=== PATIENT | male | born 1950 | race Caucasian/White ===

== ENCOUNTER → 2019-05-06 09:50 | Outpatient (POV) | payer OTHER, SELFPAY ==
[2019-05-06 10:01] VITALS: BP 159/74; PULSE 70; RESP 18; O2SAT 97; BMI 29.5
--- NOTE | 2019-05-06 15:25 | P.CONS_ITS ---
Assessment and Plan (1) Degenerative disc disease Current visit: Yes Status: Chronic Qualifiers: Spinal region: lumbar Qualified Code(s): M51.36 - Other intervertebral disc degeneration, lumbar region Category: Medical (2) Lumbar radiculopathy Current visit: Yes Status: Chronic Category: Medical Code(s): M54.16 - Radiculopathy, lumbar region - Assessment and plan all Dx Assessment and Plan for all problems:: I will follow-up with the patient at his next intrathecal pain pump refill and reprogram. Patient's been instructed to call the office if he has any issues prior to this. Dr. Seaman has reviewed this note and agrees with this plan of care. This note was dictated using voice recognition software and may contain errors or omissions HPI - Data of Consult Consult date: 05/06/19 Requesting Physician: Nikia Davidson APRN Primary Care Provider: Joe Garcia - Consult Narrative Reason for consult: Take over intrathecal pain pump History of present illness: Mr. Walker is a 68 year old male who presents today for consultation in regards to us managing his intrathecal pain pump here. He was a patient in [place] in this location is much closer. He rates his pain today at 5 out of 10 which is manageable for him. Patient did have some issues when he had his intrathecal pain pump switched over however these have resolved. He denies side effects to his medication at this time. CC: Nikia Davidson APRN [facility] History I have reviewed the patient's past medical history: Yes *Have you ever received a pneumonia vaccine?: Yes *Have you received a flu vaccine this season?: Yes - *Social History *Occupational Status:: employed *Travel in the last 8 weeks: None Family Hx:: Non-contributory Review of Systems - Review of Systems ROS General: no recent weight change, no fever, no sleep disturbances Respiratory: no cough, no shortness of air, no recurring pulmonary infections Cardiovascular/Peripheral Vascular: No chest pain, No palpitations, no edema, no shortness of breath. Gastrointestinal: no new onset incontinence, normal bowel movements reported Genitourinary: no new onset incontinence Musculoskeletal: Back pain Psychiatric: normal mood/ affect Neurological: [denies new onset weakness in extremities], [denies new onset balance issues] Meds Allergies Allergy/AdvReac Type Severity Reaction Status Date / Time No Known Allergies Allergy Verified 05/06/19 10:27 Objective Vital signs: Pulse Resp BP Pulse Ox 70 18 159/74 H 97 05/06/19 10:01 05/06/19 10:01 05/06/19 10:01 05/06/19 10:01 Narrative: Physical Exam General: Alert and oriented x3, no acute distress, pleasant and cooperative, [on room air] Lungs: Resps E/U, Symmetrical chest expansion, Eyes: PERRL Musculoskeletal: Flexion and extension of lumbar spine somewhat guarded secondary to pain, deep tendon reflexes normal, strength in upper and lower extremities [5/5], [abnormal gait noted] Neurological: speech clear, fixed income portfolio manager equal, no gross sensory deficits
== END ==
PROVIDERS: PCP Orthopaedic Surgery; Visit Provider Clinical Nurse Specialist Family Health
DX: M51.16 Intervertebral disc disorders with radiculopathy, lumbar region (principal)
CPT/HCPCS: 99202

== ENCOUNTER 2019-12-09 12:03 | Day surgery (SDC) | payer OTHER, SELFPAY ==
[2019-12-09 13:06] VITALS: BP 156/67; PULSE 63; RESP 18; O2SAT 97; BMI 28.8
[2019-12-09 13:19] VITALS: BP 185/85; PULSE 66; RESP 18
--- NOTE | 2019-12-09 13:21 | HMH.PMPROC ---
- Procedure Date: 12/09/19 Time: 13:21 Anesthesiologist:: Nikia Davidson APRN Complications:: None Pre-procedure Diagnosis:: Degenerative disc disease lumbar spine with lumbar radiculopathy Post-procedure Diagnosis:: Same Indications for Procedure:: Patient is a pleasant 69-year-old white male who presents today for intrathecal pain pump refill and reprogram he rates pain 3 out of 10 today. Overall doing well. [facility] #[id number] reviewed and appropriate. Urine drug screens have been appropriate. Patient denies side effects of medication he is currently going on morphine 1.6 mg/day. He does not need adjustments. Physical Exam General: Alert and oriented x3, no acute distress, pleasant and cooperative, Lungs: Resps E/U, Symmetrical chest expansion, Eyes: PERRL Musculoskeletal: Flexion and extension of lumbar spine somewhat guarded secondary to pain, deep tendon reflexes normal, strength in upper and lower extremities [5/5], slightly antalgic gait noted Neurological: speech clear, paper latcher equal, no gross sensory deficits Procedure Details:: Informed consent was obtained and the risk and benefits of the procedure were explained to the patient. The patient was taken to the procedure room where noninvasive monitoring was placed including noninvasive blood pressure cuff and pulse oximeter. Patient's pump was interrogated. The area over the pump was cleansed with chlorhexidine as a cleansing solution. In sterile fashion the pump was accessed with a 22-gauge needle. Approximately 9.5 mL's were removed of the pump solution and discarded appropriately. The pump was then refilled with 20 mL's of morphine 20 mg/mL. The needle was withdrawn and a bandage was placed over the puncture site. The infusion rate was reprogrammed to continue at 1.6 mg/day. The patient tolerated the procedure well. Plan and Disposition:: See the patient back at his next intrathecal pain pump refill and reprogram he has been instructed to call the office if he has any issues prior to his next appointment. Dr. Seaman has reviewed this note and agrees with this plan of care. This note was dictated using voice recognition software and may contain errors or omissions
[2019-12-09 13:22] VITALS: BP 185/85; PULSE 66; RESP 18; TEMP 36.6; O2SAT 98
[2019-12-09 13:29] VITALS: BP 154/70; PULSE 61; RESP 18; O2SAT 97
== END 2019-12-09 13:31 | disposition home or self-care (01) ==
LOC: SC.PAINP 12:05
PROVIDERS: Visit Provider Clinical Nurse Specialist Family Health
DX: M51.16 Intervertebral disc disorders with radiculopathy, lumbar region (principal); I25.10 Atherosclerotic heart disease of native coronary artery without angina pectoris; E78.5 Hyperlipidemia, unspecified; I10 Essential (primary) hypertension; J44.9 Chronic obstructive pulmonary disease, unspecified; Z87.39 Personal history of other diseases of the musculoskeletal system and connective tissue
CPT/HCPCS: 62370

== ENCOUNTER 2020-04-05 14:30 | Day surgery (SDC) | payer OTHER, SELFPAY ==
[2020-04-05 14:37] VITALS: BP 162/74; PULSE 62; RESP 19; TEMP 37; O2SAT 100; BMI 29.3
--- NOTE | 2020-04-05 14:54 | P.PCN_ITS ---
- Procedure Date: 04/05/20 Time: 15:00 Anesthesiologist:: Nikia Davidson APRN Complications:: None Pre-procedure Diagnosis:: Degenerative disc disease lumbar spine lumbar radiculopathy Post-procedure Diagnosis:: Same Indications for Procedure:: Patient is a very pleasant 69-year-old white male who presents today for intrathecal pain pump refill and reprogram. He rates his pain today a 2 out of 10. Overall doing well. [facility] #[id number] reviewed and appropriate. He is currently going at 1.6 mg of morphine a day. He denies side effects. Physical Exam General: Alert and oriented x3, no acute distress, pleasant and cooperative, [on room air] Lungs: Resps E/U, Symmetrical chest expansion, Eyes: PERRL Musculoskeletal: Flexion and extension of lumbar spine somewhat guarded secondary to pain, deep tendon reflexes normal, strength in upper and lower extremities [5/5], slightly antalgic gait noted Neurological: speech clear, sales program coordinator equal, no gross sensory deficits Procedure Details:: Informed consent was obtained and the risk and benefits of the procedure were explained to the patient. The patient was taken to the procedure room where no ninvasive monitoring was placed including noninvasive blood pressure cuff and pulse oximeter. Patient's pump was interrogated. The area over the pump was cleansed with chlorhexidine as a cleansing solution. In sterile fashion the pump was accessed with a 22-gauge needle. Approximately 10 mL's were removed of the pump solution and discarded appropriately. The pump was then refilled with 20 mL's of morphine 20 mg/mL. The needle was withdrawn and a bandage was placed over the puncture site. The infusion rate was reprogrammed to continue at 1.6 mg/day. The patient tolerated the procedure well. My pain pump refill Plan and Disposition:: I will see the patient back at his next intrathecal pain pump refill and reprogram he has been instructed to call the office if he has any issues prior to his next appointment. Dr. Seaman has reviewed this note and agrees with this plan of care. This note was dictated using voice recognition software and may contain errors or omissions
[2020-04-05 14:58] VITALS: BP 165/80; PULSE 63
[2020-04-05 14:59] VITALS: BP 165/78; PULSE 65; RESP 18; O2SAT 98
[2020-04-05 15:10] VITALS: BP 169/74; PULSE 62; RESP 18; O2SAT 96
== END 2020-04-05 15:12 | disposition home or self-care (01) ==
LOC: SC.PAINP 14:33
PROVIDERS: Visit Provider Clinical Nurse Specialist Family Health
DX: M51.16 Intervertebral disc disorders with radiculopathy, lumbar region (principal); I10 Essential (primary) hypertension; E78.5 Hyperlipidemia, unspecified; J44.9 Chronic obstructive pulmonary disease, unspecified; Z90.49 Acquired absence of other specified parts of digestive tract; Z87.39 Personal history of other diseases of the musculoskeletal system and connective tissue
CPT/HCPCS: 95991

== ENCOUNTER 2020-08-02 12:27 | Day surgery (SDC) | payer OTHER, SELFPAY ==
[2020-08-02 12:53] VITALS: BP 137/79; PULSE 60; RESP 18; TEMP 37.3; BMI 29.0
[2020-08-02 13:31] VITALS: BP 178/88; PULSE 65; RESP 18; TEMP 36.8; O2SAT 98
[2020-08-02 13:32] VITALS: BP 175/87; PULSE 65; RESP 18; O2SAT 97
--- NOTE | 2020-08-02 13:34 | HMH.PMPROC ---
- Procedure Date: 08/02/20 Time: 13:34 Anesthesiologist:: Nikia Davidson APRN Complications:: None Pre-procedure Diagnosis:: Degenerative disc disease lumbar spine lumbar radiculopathy Post-procedure Diagnosis:: Same Indications for Procedure:: Patient is a pleasant 69-year-old white male who presents today for intrathecal pain pump refill and reprogram. He rates his pain a 2 out of 10 and is doing well. He does not need any changes to his intrathecal infusion of morphine 1.6 mg/day. He denies side effects. [facility] #[id number] reviewed and appropriate. Drug screens have been appropriate. Physical Exam General: Alert and oriented x3, no acute distress, pleasant and cooperative, [on room air] Lungs: Resps E/U, Symmetrical chest expansion, Eyes: PERRL Musculoskeletal: Flexion and extension of lumbar spine somewhat guarded secondary to pain, deep tendon reflexes normal, strength in upper and lower extremities [5/5], antalgic gait noted Neurological: speech clear, barrel lathe operator outside equal, no gross sensory deficits Procedure Details:: Informed consent was obtained and the risk and benefits of the procedure were explained to the patient. The patient was taken to the procedure room where noninvasive monitoring was placed including noninvasive blood pressure cuff and pulse oximeter. Patient's pump was interrogated. The area over the pump was cleansed with chlorhexidine as a cleansing solution. In sterile fashion the pump was accessed with a 22-gauge needle. Approximately 10 mL's were removed of the pump solution and discarded appropriately. The pump was then refilled with 20 mL's of 20 mils of morphine 20 mg/ml. The needle was withdrawn and a bandage was placed over the puncture site. The infusion rate was reprogrammed to continue at 1.6 mg/day. The patient tolerated the procedure well. Plan and Disposition:: I will see the patient back at his next intrathecal pain pump refill and reprogram he has been instructed to call the office if he has any issues prior to his next appointment. Dr. Seaman has reviewed this note and agrees with this plan of care. This note was dictated using voice recognition software and may contain errors or omissions
[2020-08-02 13:38] VITALS: BP 127/73; PULSE 60; RESP 18; TEMP 37.3; O2SAT 97
== END 2020-08-02 13:40 | disposition home or self-care (01) ==
LOC: SC.PAINP 12:28
PROVIDERS: Visit Provider Clinical Nurse Specialist Family Health
DX: M51.16 Intervertebral disc disorders with radiculopathy, lumbar region (principal); I10 Essential (primary) hypertension; K21.9 Gastro-esophageal reflux disease without esophagitis; N40.0 Benign prostatic hyperplasia without lower urinary tract symptoms; Z87.39 Personal history of other diseases of the musculoskeletal system and connective tissue; Z90.01 Acquired absence of eye; E11.9 Type 2 diabetes mellitus without complications; Z79.890 Hormone replacement therapy; Z79.84 Long term (current) use of oral hypoglycemic drugs; Z79.899 Other long term (current) drug therapy
CPT/HCPCS: 95991

== ENCOUNTER 2020-11-08 12:57 | Day surgery (SDC) | payer OTHER, SELFPAY ==
[2020-11-08 13:14] VITALS: BP 167/74; PULSE 59; RESP 18; TEMP 36.6; O2SAT 98; BMI 28.8
[2020-11-08 13:33] VITALS: BP 174/85; PULSE 67; RESP 18; TEMP 36.8; O2SAT 98
[2020-11-08 13:34] VITALS: BP 168/88; PULSE 65; RESP 18; O2SAT 98
--- NOTE | 2020-11-08 13:35 | P.PCN_ITS ---
- Procedure Date: 11/08/20 Time: 13:35 Anesthesiologist:: Nikia Davidson APRN Complications:: None Pre-procedure Diagnosis:: Generative disc disease lumbar spine lumbar radiculopathy, acute neck pain, back pain Post-procedure Diagnosis:: Same Indications for Procedure:: Patient is a pleasant 70-year-old white male who presents today for intrathecal pain pump refill and reprogram. Patient back pain is doing well however he has had a acute neck pain. Patient rates this a 7 out of 10. He has issues with ocular migraines as well. Patient I discussed a round of steroids and an MRI of his cervical spine he is in agreement. Patient currently on 1.6 mg a day of morphine. He denies side effects. [facility] #[id number] reviewed and appropriate. Procedure Details:: Informed consent was obtained and the risk and benefits of the procedure were explained to the patient. The patient was taken to the procedure room where noninvasive monitoring was placed including noninvasive blood pressure cuff and pulse oximeter. Patient's pump was interrogated. The area over the pump was cleansed with chlorhexidine as a cleansing solution. In sterile fashion the p ump was accessed with a 22-gauge needle. Approximately 11.5 mL's were removed of the pump solution and discarded appropriately. The pump was then refilled with 20 mL's of morphine 20 mg/mL. The needle was withdrawn and a bandage was placed over the puncture site. The infusion rate was reprogrammed to continued at 1.6 mg/day. The patient tolerated the procedure well. Plan and Disposition:: We will send in the patient prednisone 20 mg 1 p.o. twice daily for 5 days we will also give him an order for an MRI to be done in his hometown. We will follow up after this is completed. He has been instructed to call our office if the pain gets worse or if he has any issues prior to his next appointment. Dr. Seaman has reviewed this note and agrees with this plan of care. This note was dictated using voice recognition software and may contain errors or omissions
[2020-11-08 14:28] VITALS: BP 138/69; PULSE 61; RESP 18; TEMP 36.6; O2SAT 98
== END 2020-11-08 13:40 | disposition home or self-care (01) ==
LOC: SC.PAINP 13:01
PROVIDERS: Visit Provider Clinical Nurse Specialist Family Health
DX: M51.16 Intervertebral disc disorders with radiculopathy, lumbar region (principal); M54.2 Cervicalgia; I25.10 Atherosclerotic heart disease of native coronary artery without angina pectoris; E78.5 Hyperlipidemia, unspecified; I10 Essential (primary) hypertension; E11.9 Type 2 diabetes mellitus without complications; K21.9 Gastro-esophageal reflux disease without esophagitis; Z87.39 Personal history of other diseases of the musculoskeletal system and connective tissue
CPT/HCPCS: 95991

== ENCOUNTER → 2020-12-02 13:36 | Outpatient (POV) | payer OTHER, SELFPAY ==
--- NOTE | 2020-12-02 14:07 | P.PCN_ITS ---
- Procedure Date: 12/02/20 Time: 14:07 Anesthesiologist:: Nikia Davidson APRN Complications:: None Pre-procedure Diagnosis:: Degenerative disc disease lumbar spine lumbar radiculopathy, degenerative disc disease cervical spine cervical radiculopathy Post-procedure Diagnosis:: Same Indications for Procedure:: Is a pleasant 70-year-old white male who presents today for discussion I r arjunwed in regard to his new MRI. Patient does have some degeneration in his cervical spine. We will make an increase in his intrathecal therapy. Patient also having quite a bit of muscle pain. We discussed switching his muscle relaxer to Zanaflex versus Flexeril. We will move forward with this. Patient I also briefly discussed potential medication changes or the addition of bupivacaine. He rates his pain today a 5 out of 10 Procedure Details:: Informed consent was obtained and the risk and benefits of the procedure were explained to the patient. The patient was taken to the procedure room where noninvasive monitoring was placed including noninvasive blood pressure cuff and pulse oximeter. Patient's pump was interrogated and reprogrammed. The infusion rate was increased to 1.9 mg a day morphine. The patient tolerated the procedure well. Plan and Disposition:: We will start him on Zanaflex 2 mg 1-2 tabs 3 times a day day.. We will do a virtual visit in 2 weeks to see how he is doing with the adjustment if he is not getting much relief we will discuss potentially changing medications. Dr. Seaman has reviewed this note and agrees with this plan of care. This note was dictated using voice recognition software and may contain errors or omissions Dr. Seaman has reviewed this note and agrees with this plan of care. This note was dictated using voice recognition software and may contain errors or omissions he has been instructed to call the office if he has any issues prior to his next appointment.
[2020-12-02 14:51] VITALS: BP 131/71; PULSE 72; RESP 18; O2SAT 98; BMI 29.5
== END ==
PROVIDERS: Visit Provider Clinical Nurse Specialist Family Health
DX: M51.16 Intervertebral disc disorders with radiculopathy, lumbar region (principal); M50.10 Cervical disc disorder with radiculopathy, unspecified cervical region
CPT/HCPCS: 62368

== ENCOUNTER 2021-03-07 13:37 | Day surgery (SDC) | payer OTHER, SELFPAY ==
[2021-03-07 13:53] VITALS: BP 179/79; PULSE 64; RESP 18; TEMP 36.6; O2SAT 97; BMI 29.7
--- NOTE | 2021-03-07 14:05 | HMH.PMPROC ---
- Procedure Date: 03/07/21 Time: 14:05 Anesthesiologist:: Lore Snyder APRN Complications:: None Pre-procedure Diagnosis:: Degenerative disc disease lumbar spine with lumbar radiculopathy symptoms, degenerative disc disease cervical spine with cervical radiculopathy symptoms Post-procedure Diagnosis:: Same Indications for Procedure:: Patient is a 70-year-old white male who presents today for intrathecal pain pump refill and reprogram. He has been treated for degenerative disc disease cervical spine and lumbar spine with cervical and lumbar radiculopathy symptoms. Patient is currently on intrathecal therapy with morphine at at 1.9 mg/day. He is rating his pain a [address] [facility] #[id number] has been reviewed and is appropriate. Drug screen is appropriate. Morphine equivalent is 0. He is doing well with his dose at this time and does not need any changes. Physical exam General: Alert and oriented x3, no acute distress, pleasant and cooperative, [on room air] Lungs: Respirations even and unlabored, symmetrical chest expansion Eyes: PERRL Musculoskeletal: Flexion and extension of lumbar [spine] somewhat guarded secondary to pain, strength in upper and lower extremities [5/5], [antalgic gait noted] Neurological: Speech clear, [chronic care nurse equal], no gross sensory deficit Procedure Details:: Informed consent was obtained and the risk and benefits of the procedure were explained to the patient. The patient was taken to the procedure room where noninvasive monitoring was placed including noninvasive blood pressure cuff and pulse oximeter. Patient's pump was interrogated. The area over the pump was cleansed with chlorhexidine as a cleansing solution. In sterile fashion the pump was accessed with a 22-gauge needle. Approximately 7 mls of the pump solution was removed and discarded appropriately. The pump was then refilled with 20 mL's of morphine 20 mg/mL. The needle was withdrawn and a bandage was placed over the puncture site. The infusion rate was reprogrammed at morphine at 1.9 mg/day. The patient tolerated well with no complication. Plan and Disposition:: We will see the patient back in the clinic at the next intrathecal refill. Patient has been instructed to contact the clinic with any concerns before the next appointment. Dr. Seaman has reviewed this note and agrees with this plan of care. This note was dictated using voice recognition software and make contain errors or omissions.
[2021-03-07 14:07] VITALS: BP 156/85; PULSE 69; RESP 18; O2SAT 97
[2021-03-07 14:08] VITALS: BP 156/85; PULSE 68; RESP 18; O2SAT 96
[2021-03-07 14:20] VITALS: BP 160/76; PULSE 65; RESP 18; O2SAT 97
== END 2021-03-07 14:21 | disposition home or self-care (01) ==
LOC: SC.PAINP 13:38
PROVIDERS: PCP Family Medicine; Visit Provider Clinical Nurse Specialist Family Health
DX: M51.16 Intervertebral disc disorders with radiculopathy, lumbar region (principal); M50.10 Cervical disc disorder with radiculopathy, unspecified cervical region
CPT/HCPCS: 95991

== ENCOUNTER 2021-06-13 13:27 | Day surgery (SDC) | payer OTHER, SELFPAY ==
--- NOTE | 2021-06-13 13:37 | P.PCN_ITS ---
- Procedure Date: 06/13/21 Time: 13:37 Anesthesiologist:: Lore Snyder APRN Complications:: None Pre-procedure Diagnosis:: Degenerative disc disease lumbar spine with lumbar radiculopathy symptoms Post-procedure Diagnosis:: Same Indications for Procedure:: Patient is a pleasant 70-year-old white male who presents today for intrathecal pain pump [refill] [and reprogram]. The patient is being treated for chronic low back pain. He is doing well with his intrathecal pump. He is reporting to be having a fungal infection to his lungs. They are working him up to determine what type of antibiotic is sensitive to the infection that he currently has. This has been ongoing for a couple months. He thought that it was due to the intrathecal medication but has since realized it is not. Patient rates pain a 4 out of 10. Drug screen is appropriate. [facility] [ ] has been reviewed and is appropriate. Physical exam General: Alert and oriented x3, no acute distress, pleasant and cooperative, [on room air] Lungs: Respirations even and unlabored, symmetrical chest expansion Eyes: PERRL Musculoskeletal: Flexion and extension of lumbar [spine] somewhat guarded secondary to pain, [antalgic gait noted] Neurological: Speech clear, no gross sensory deficit Procedure Details:: Informed consent was obtained and the risk and benefits of the procedure were explained to the patient. The patient was taken to the procedure room where noninvasive monitoring was placed including noninvasive blood pressure cuff and pulse oximeter. Patient's pump was interrogated. The area over the pump was cleansed with chlorhexidine as a cleansing solution. In sterile fashion the pump was accessed with a 22-gauge needle. Approximately 7 mls of the pump solut ion was removed and discarded appropriately. The pump was then refilled with 20 mL's of morphine 20 mg per mill. The needle was withdrawn and a bandage was placed over the puncture site. The infusion rate was reprogrammed at morphine at 1.9 mg/day. The patient tolerated well with no complication. Plan and Disposition:: Patient has been instructed to contact the clinic with any concerns before the next appointment. Dr. Seaman has reviewed this note and agrees with this plan of care. This note was dictated using voice recognition software and make contain errors or omissions.
[2021-06-13 13:43] VITALS: BP 169/74; PULSE 58; RESP 18; TEMP 37.2; O2SAT 95; BMI 28.8
[2021-06-13 14:16] VITALS: BP 156/72; PULSE 61; RESP 18; O2SAT 95
[2021-06-13 14:17] VITALS: PULSE 66; RESP 18; O2SAT 96
[2021-06-13 14:30] VITALS: BP 165/68; PULSE 56; RESP 20; O2SAT 96
[2021-06-13 20:05] LABS: Amphetamine/Metha Screen,Urine Negative ng/ml (<1000)
[2021-06-13 20:06] LABS: Barbiturates Screen,Urine Negative ng/ml (<200); Benzodiazepines Screen,Urine Negative ng/ml (<200)
[2021-06-13 20:10] LABS: Cannabinoid Screen,Urine Negative ng/ml (<50)
[2021-06-13 20:11] LABS: Cocaine Screen,Urine Negative ng/ml (<300); Methadone Screen,Urine Negative ng/ml (<300)
[2021-06-13 20:12] LABS: Phencyclidine Screen,Urine Negative ng/ml (<25)
[2021-06-13 20:13] LABS: Opiate Screen,Urine Negative ng/ml (<300)
== END 2021-06-13 14:30 | disposition home or self-care (01) ==
LOC: SC.PAINP 13:27
PROVIDERS: PCP Family Medicine; Visit Provider Clinical Nurse Specialist Family Health
DX: M51.16 Intervertebral disc disorders with radiculopathy, lumbar region (principal); Z45.1 Encounter for adjustment and management of infusion pump; Z79.891 Long term (current) use of opiate analgesic
CPT/HCPCS: 80305; 95991

== ENCOUNTER 2021-09-12 12:24 | Day surgery (SDC) | payer OTHER, SELFPAY ==
[2021-09-12 13:01] VITALS: BP 152/69; BP 156/70; PULSE 49; PULSE 56; RESP 20; TEMP 36.8; O2SAT 97; BMI 28.8
[2021-09-12 13:10] VITALS: BP 160/75; PULSE 57; RESP 20; O2SAT 96
[2021-09-12 13:12] VITALS: BP 158/70; PULSE 58; RESP 20; O2SAT 97
--- NOTE | 2021-09-12 15:21 | P.PCN_ITS ---
- Procedure Date: 09/12/21 Time: 15:21 Anesthesiologist:: Eloisa Marrero MD Complications:: None Pre-procedure Diagnosis:: Degenerative disc disease of lumbar spine with lumbar radiculopathy Post-procedure Diagnosis:: Same Indications for Procedure:: Patient is a very pleasant 71-year-old male who presents today for intrathecal pump refill and reprogram. He is currently being treated for degenerative disc disease and lumbar spine lumbar radiculopathy. He has a pump with a flow Clifford system with intrathecal morphine 20 mg/mL at 1.9 mg/day and constant flow and PTC. He states that his chronic pain symptoms are adequately by his current pump settings. Today we will perform intrathecal pump refill and reprogram without any changes in the pump settings. Procedure Details:: Informed consent was obtained and the risks and benefits of the procedure was explained to the patient. The patient was taken to the procedure room. The pump was interrogated. The area over the pump was prepped using ChloraPrep. The pump was accessed with a 22-gauge needle. Approximately 11 mL's of the intrathecal solution was withdrawn and discarded. The pump was then refilled with 20 mL's of intrathecal warfarin 20 mg/mL. the pump was interrogated and the infusion was continued at 1.9 mg/day. The patient tolerated the procedure well with no complications. Next refill date is on [January 04, 2022]. Plan and Disposition:: We will follow-up with this patient on or before the next pump refill appointment make any pump adjustments at that time if indicated. I discussed with the patient the patient contact her clinic sooner should any issues arise. [facility] #[id number] was reviewed and appropriate.
== END 2021-09-12 13:35 | disposition home or self-care (01) ==
LOC: SC.PAINP 12:25
PROVIDERS: PCP Family Medicine; Visit Provider Anesthesiology Pain Medicine
DX: M51.16 Intervertebral disc disorders with radiculopathy, lumbar region (principal); Z45.1 Encounter for adjustment and management of infusion pump
CPT/HCPCS: 95991

== ENCOUNTER → 2021-09-12 13:30 | Outpatient (CLI) | payer OTHER, SELFPAY ==
[2021-09-12 17:27] LABS: Amphetamine/Metha Screen,Urine Negative ng/ml (<1000); Barbiturates Screen,Urine Negative ng/ml (<200)
[2021-09-12 17:29] LABS: Benzodiazepines Screen,Urine Negative ng/ml (<200)
[2021-09-12 17:30] LABS: Cannabinoid Screen,Urine Negative ng/ml (<50)
[2021-09-12 17:31] LABS: Cocaine Screen,Urine Negative ng/ml (<300); Methadone Screen,Urine Negative ng/ml (<300)
[2021-09-12 17:32] LABS: Opiate Screen,Urine Positive ng/ml (<300); Phencyclidine Screen,Urine Negative ng/ml (<25)
[2021-09-30 09:02] LABS: Codeine Negative (Cutoff=100); Hydrocodone Negative (Cutoff=100); Hydromorphone Negative (Cutoff=100); Morphine Positive (.); Opiates Positive (.)
== END ==
PROVIDERS: Visit Provider Clinical Nurse Specialist Family Health
DX: Z79.891 Long term (current) use of opiate analgesic (principal)
CPT/HCPCS: 80305; 80361; 80365; G0480

== ENCOUNTER 2021-12-26 12:44 | Day surgery (SDC) | payer OTHER, SELFPAY ==
[2021-12-26 13:09] VITALS: BP 153/67; PULSE 57; RESP 20; TEMP 36.8; O2SAT 97; BMI 29.9
[2021-12-26 13:20] VITALS: BP 167/66; PULSE 60; RESP 18; O2SAT 96
[2021-12-26 13:22] VITALS: BP 164/71; PULSE 65; RESP 18; O2SAT 97
--- NOTE | 2021-12-26 13:25 | HMH.PMPROC ---
- Procedure Date: 12/26/21 Time: 13:25 Anesthesiologist:: GEETA Ross Complications:: None Pre-procedure Diagnosis:: Degenerative disease of lumbar spine with lumbar radiculopathy symptoms Post-procedure Diagnosis:: Same Indications for Procedure:: Patient is a pleasant 71-year-old male who presents today for intrathecal pain pump refill and reprogram. The patient is being treated for degenerative disease of lumbar spine with lumbar radiculopathy symptoms. Patient is currently being managed with morphine 21 mg/mL at a rate of 1.9 mg/day. Patient denies any side effects from this medication. Patient does note some constipation but he takes Dulcolax for this. Patient is stable in this dose. Patient rates pain a 3 out of 10. Drug screen is appropriate. [facility] [id number] with an active morphine equivalent of 0 has been reviewed and is appropriate. Physical exam General: Alert and oriented x3, no acute distress, pleasant and cooperative Lungs: Respirations even and unlabored, symmetrical chest expansion Eyes: PERRL Musculoskeletal: Flexion and extension of lumbar [spine] somewhat guarded secondary to pain, [antalgic gait noted] Neurological: Speech clear, no gross sensory deficit Procedure Details:: Informed consent was obtained and the risk and benefits of the procedure were explained to the patient. The patient was taken to the procedure room where noninvasive monitoring was placed including noninvasive blood pressure cuff and pulse oximeter. Patient's pump was interrogated. The area over the pump was cleansed with chlorhexidine as a cleansing solution. [Fluoroscopy was used to access the pump]. In sterile fashion the pump was accessed with a 22-gauge needle. Approximately 10 mls of the pump solution was removed and discarded appropriately. The pump was then refilled with 20 mL's of morphine 20 mg/mL. The needle was withdrawn and a bandage was placed over the puncture site. The infusion rate was reprogrammed and continued at morphine 1.9 mg/day. The patient tolerated well with no complication. Plan and Disposition:: We will see the patient back in the clinic at the next intrathecal refill. Patient has been instructed to contact the clinic with any concerns before the next appointment. Dr. Seaman has reviewed this note and agrees with this plan of care. This note was dictated using voice recognition software and make contain errors or omissions.
[2021-12-26 13:28] VITALS: BP 153/67; PULSE 57; RESP 18; O2SAT 95
[2021-12-26 14:36] LABS: Benzodiazepines Screen,Urine Negative ng/ml (<200)
[2021-12-26 14:37] LABS: Amphetamine/Metha Screen,Urine Negative ng/ml (<1000); Barbiturates Screen,Urine Negative ng/ml (<200)
[2021-12-26 14:38] LABS: Cannabinoid Screen,Urine Negative ng/ml (<50); Methadone Screen,Urine Negative ng/ml (<300)
[2021-12-26 14:39] LABS: Cocaine Screen,Urine Negative ng/ml (<300)
[2021-12-26 14:41] LABS: Opiate Screen,Urine Positive ng/ml (<300); Phencyclidine Screen,Urine Negative ng/ml (<25)
[2022-01-11 09:14] LABS: Codeine Negative (Cutoff=100); Hydrocodone Negative (Cutoff=100); Hydromorphone Negative (Cutoff=100); Morphine Positive (.); Opiates Positive (.)
== END 2021-12-26 13:30 | disposition home or self-care (01) ==
LOC: SC.PAINP 12:45
PROVIDERS: PCP Family Medicine; Visit Provider Student in an Organized Health Care Education/Training Program
DX: M51.16 Intervertebral disc disorders with radiculopathy, lumbar region (principal)
CPT/HCPCS: 62370; 80305; 80361; 80365; G0480

== ENCOUNTER 2022-05-02 12:04 | Day surgery (SDC) | payer OTHER, SELFPAY ==
[2022-05-02 12:39] VITALS: BP 152/67; PULSE 64; RESP 16; TEMP 37.1; O2SAT 95; BMI 28.9
[2022-05-02 12:50] VITALS: BP 195/94; PULSE 59; RESP 18; O2SAT 99
[2022-05-02 12:51] VITALS: BP 195/94; PULSE 59; RESP 18; O2SAT 99
--- NOTE | 2022-05-02 12:56 | P.PCN_ITS ---
Procedure Date: 05/02/22 Time: 12:56 Anesthesiologist:: Mino Monahan CRNA Complications:: None Pre-procedure Diagnosis:: Degenerative disc disease lumbar spine multilevels. Lumbar radiculopathy Post-procedure Diagnosis:: Same. Indications for Procedure:: Patient is a pleasant 71-year-old male who presents today for intrathecal pain pump refill and reprogram. Patient being treated for degenerative disc disease lumbar spine multilevels. Lumbar radiculopathy. He is currently being managed with morphine 20 mg/mL at a rate of 1.9 mg/day. Patient denies any side effects from the medication. Procedure Details:: Details of the procedure were explained to the patient. The patient taken to procedure room placed in the supine position. The area over the pump was cleansed using chlorhexidine as a cleansing solution. The pump was accessed with ease using a 22-gauge needle. 8 mL of solution was expected and withdrawn and discarded appropriately. The pump was then filled with 20 cc of morphine sulfate 20 mg/mL. The rate was continued at 1.9 mg/day. Patient tolerated procedure without difficulty. There are no complications. Plan and Disposition:: Patient requesting transfer to the [place] office. This would be closer for him driving from [place]. We assured the patient this would not be an issue.
[2022-05-02 12:59] VITALS: BP 174/80; PULSE 57; RESP 18; O2SAT 97
== END 2022-05-02 13:00 | disposition home or self-care (01) ==
PROVIDERS: PCP Family Medicine; Visit Provider Nurse Anesthetist, Certified Registered
DX: M51.16 Intervertebral disc disorders with radiculopathy, lumbar region (principal)
CPT/HCPCS: 95991